=== PATIENT | male | born 1985 | race Caucasian/White ===

== ENCOUNTER 2017-02-20 12:30 | Emergency (ER) | payer SELFPAY ==
[~2017-02-20] VITALS: Ht 182.9 cm; Wt 109.1 kg
[2017-02-20] MEDS ORDERED: NORCO 5/3251 TABLET PO (14:40)
[2017-02-20] MEDS ORDERED: MOTRIN800 MG PO (14:40)
[2017-02-20 15:27] VITALS: BP 157/87
== END 2017-02-20 15:27 | disposition home or self-care (01) ==
LOC: EME 12:30
DX: S62.353A Nondisplaced fracture of shaft of third metacarpal bone, left hand, initial encounter for closed fracture (principal); W23.0XXA Caught, crushed, jammed, or pinched between moving objects, initial encounter; Z87.891 Personal history of nicotine dependence
CPT/HCPCS: 73630; 99281; 99285; J2270; J2405